=== PATIENT | female | born 1955 | race Two or more races ===

== ENCOUNTER 2022-04-02 12:46 | Emergency (ER) | payer OTHER ==
[~2022-04-02] VITALS: Ht 154.9 cm; Wt 84.0 kg
[2022-04-02 13:26] LABS: Basophils # (auto) 0.1 10 ^3/uL (0-0.2); Basophils % (auto) 1.1 % (0.0-2.0); Eosinophils # (auto) 0.1 10 ^3/uL (0-0.8); Eosinophils % (auto) 0.7 % (0.0-7.0); Hematocrit 46.4 % (36.0-46.0); Hemoglobin 15.2 g/dL (12.2-16.2); Lymphocytes # (auto) 1.2 10 ^3/uL (0.4-5.4); Lymphocytes % (auto) 9.5 % (10.0-50.0); Mean Corpuscular Hemoglobin 28.8 pg (28.0-32.0); Mean Corpuscular Hgb Conc. 32.8 g/dL (32.0-36.0); Mean Corpuscular Volume 87.9 fL (80.0-100.0); Monocytes # (auto) 0.8 10 ^3/uL (0-1.3); Monocytes % (auto) 6.1 % (0.0-12.0); Neutrophils # (auto) 10.8 10 ^3/uL (1.6-8.6); Neutrophils % (auto) 82.6 % (37.0-80.0); Nucleated Red Blood Cells % 0.2 %; Red Blood Cells 5.28 10^6/uL (4.0-5.20); Red Cell Distribution Width 15.1 % (11.8-14.3); White Blood Cell 13.1 10^3/uL (4.4-10.8)
[2022-04-02 13:43] LABS: Albumin 3.9 g/dL (3.4-5.0); Calcium 9.6 mg/dL (8.5-10.1); Potassium 4.3 mmol/L (3.5-5.1)
[2022-04-02 13:46] LABS: BUN/Creatinine Ratio 22.9; Bilirubin, Total 0.5 mg/dL (0.2-1.0); Total Protein 7.1 g/dL (6.4-8.2)
[2022-04-02 18:10] VITALS: BP 155/92
== END 2022-04-02 18:12 | disposition home or self-care (01) ==
LOC: ER 12:46
DX: R07.89 Other chest pain (principal); I10 Essential (primary) hypertension; E11.9 Type 2 diabetes mellitus without complications; E03.9 Hypothyroidism, unspecified; E78.5 Hyperlipidemia, unspecified; Z90.49 Acquired absence of other specified parts of digestive tract; Z90.710 Acquired absence of both cervix and uterus
CPT/HCPCS: 36415; 71045; 80053; 83880; 84484; 85025; 93005